=== PATIENT | female | born 1990 | race American Indian/Alaskan Native ===

== ENCOUNTER 2016-12-22 14:27 | Emergency (ER) | payer OTHER ==
[2016-12-22 14:41] VITALS: BMI 33.2
[2016-12-22] MEDS ORDERED: Sodium Chloride 0.9% 1,000 ML IV ONE (15:13)
[2016-12-22] MEDS ORDERED: Sodium Chloride 0.9% 1,000 ML ONE (15:25)
[2016-12-22 15:28] LABS: BASO # 0.1 K/uL (0.0-0.2); BASO % 0.8 % (0.0-2.0); EOS % 0.1 % (0.0-4.0); HEMATOCRIT 41.8 % (34.0-47.0); LYMPH # 2.3 K/uL (1.0-4.3); LYMPH % 34.3 % (20.0-40.0); MEAN CELL VOLUME 86.9 fL (81.0-99.0); MEAN CORPUSCULAR HEMOGLOBIN 28.5 pg (27.0-31.0); MEAN CORPUSCULAR HGB CONC 32.8 g/dL (33.0-37.0); MEAN PLATELET VOLUME 9.8 fL (7.2-11.7); MONO # 0.8 K/uL (0.0-0.8); MONO % 11.5 % (0.0-10.0); RED CELL DISTRIBUTION WIDTH 13.3 % (11.5-14.5); WHITE BLOOD COUNT 6.7 K/uL (4.8-10.8)
--- NOTE | 2016-12-22 15:28 | C.PDOC ---
History Of Present Illness 26 year old female presents to ED with complaints of nausea and vomiting for one week associated with abdominal pain. Patient states she was seen at [facility] few days ago and discharged with Rx. She states pain resolved however she continues to vomit, unable to keep food or water down. She denies any fever, hematemesis, and last BM 3 days ago. Time Seen by Provider: 12/22/16 15:02 Chief Complaint (Nursing): GI Problem History Per: Patient History/Exam Limitations: no limitations Onset/Duration Of Symptoms: Days Current Symptoms Are (Timing): Still Present Location Of Pain/Discomfort: Diffuse Radiation Of Pain To:: None Associated Symptoms: Nausea, Vomiting. denies: Fever, Diarrhea, Urinary Symptoms Last Bowel Movement: Days Ago (3) Recent travel outside of the [place]: No Abnormal Vaginal Bleeding: No Past Medical History Reviewed: Historical Data, Nursing Documentation, Vital Signs Vital Signs: Last Vital Signs Temp 97.6 F 12/22/16 17:40 Pulse 81 12/22/16 17:40 Resp 16 12/22/16 17:40 BP 127/71 12/22/16 17:40 Pulse Ox 97 12/22/16 17:40 - Medical History PMH: Asthma Family History: States: Unknown Family Hx - Social History Hx Alcohol Use: No Hx Substance Use: No - Immunization History Hx Tetanus Toxoid Vaccination: No Hx Influenza Vaccination: No Hx Pneumococcal Vaccination: No Review Of Systems Except As Marked, All Systems Reviewed And Found Negative. Constitutional: Negative for: Fever, Chills Cardiovascular: Negative for: Chest Pain Respiratory: Negative for: Shortness of Breath, Wheezing Gastrointestinal: Positive for: Nausea, Vomiting, Abdominal Pain. Negative for : Diarrhea, Hematemesis Skin: Negative for: Rash Physical Exam - Physical Exam Appears: Non-toxic, No Acute Distress Skin: Normal Color, Dry Head: Atraumatic, Normacephalic Oral Mucosa: Moist Chest: Symmetrical Cardiovascular: Rhythm Regular Respiratory: Normal Breath Sounds, No Rales, No Rhonchi, No Wheezing Gastrointestinal/Abdominal: Soft, No Tenderness, No Distention, No Guarding, No Rebound Back: Normal Inspection Extremity: Normal ROM, Capillary Refill (< 2 sec. ) Neurological/Psych: Oriented x3, Normal Speech, Normal Cognition ED Course And Treatment - Laboratory Results Result Diagrams: 12/22/16 15:25 06/14/17 15:25 O2 Sat by Pulse Oximetry: 99 (RA) Pulse Ox Interpretation: Normal Medical Decision Making Medical Decision Making: Impression: Nausea and Vomiting Plan: * Labs * IV NS, Zofran Prior record reviewed: Patient was seen at [facility] and had US and CT performed showing no cholelithiasis or biliary dilatation. 1.4 cm septated cyst in the lower pole of the left kidney. Progress: Labs reviewed showing hypokalemia. KCL PO ordered. Upon reevaluation patient reports nausea improved. She was able to tolerate PO challenge. She remains afebrile and in no distress. Patient stable for discharge. Will prescribe antiemetic Disposition Counseled Patient/Family Regarding: Diagnosis, Need For Followup, Rx Given - Disposition Referrals: Gonzalez Lemus MD [Staff Provider] - Disposition: HOME/ ROUTINE Disposition Time: 17:40 Condition: STABLE Additional Instructions: Follow up with your primary medical doctor or clinic in 2-5 days for further evaluation. Take medications as prescribed. Return to the emergency department at any time if symptoms persist or worsen. Prescriptions: Ondansetron ODT [Zofran ODT] 1 odt PO BID PRN #6 odt PRN Reason: Nausea/Vomiting Instructions: Acute Nausea and Vomiting (ED) Forms: Work Excuse - POA Present On Arrival: None - Clinical Impression Clinical Impression: Nausea & vomiting - PA / SKIN CARVER / Resident Statement MD/DO has reviewed & agrees with the documentation as recorded. - Scribe Statement The provider has reviewed the documentation as recorded by the Je Alexandra All medical record entries made by the Je were at my direction and personally dictated by me. I have reviewed the chart and agree that the record accurately reflects my personal performance of the history, physical exam, medical decision making, and the department course for this patient. I have also personally directed, reviewed, and agree with the discharge instructions and disposition.
[2016-12-22 15:39] LABS: CHLORIDE 99 mmol/L (98-107); SODIUM 134 mmol/L (132-148)
[2016-12-22 15:42] LABS: ALB/GLOB RATIO 1.2 (1.0-2.1); ALKALINE PHOSPHATASE 56 U/L (38-126); ALT/SGPT 28 U/L (9-52); AST/SGOT 23 U/L (14-36); BILIRUBIN,TOTAL 1.1 mg/dL (0.2-1.3); BLOOD UREA NITROGEN 10 mg/dL (7-17); CARBON DIOXIDE 21 mmol/L (22-30); GFR AFRICAN-AMERICAN > 60; GLUCOSE,RANDOM 84 mg/dL (65-105); TOTAL PROTEIN 7.4 g/dL (6.3-8.3)
[2016-12-22 15:43] LABS: CALCIUM 8.6 mg/dl (8.6-10.4)
[2016-12-22 15:58] LABS: POTASSIUM 2.7 mmol/L (3.6-5.2)
[2016-12-22] MEDS ORDERED: Potassium Chloride 20 mEq ER Tab PO STA (16:07)
[2016-12-22] MEDS ORDERED: Potassium Chloride 20 mEq ER Tab PO ONE (16:53)
[2016-12-22 17:35] LABS: RBC URINE 27 /hpf (0-3); URINE BACTERIA RARE (<OCC); URINE BILIRUBIN NEGATIVE (NEGATIVE); URINE BLOOD 2+ (NEGATIVE); URINE COLOR Amber (YELLOW); URINE GLUCOSE (UA) NORMAL (Normal); URINE KETONE 2+ mg/dL (NEGATIVE); URINE LEUKOCYTE ESTERASE TRACE Leu/uL (Negative); URINE PROTEIN 1+ mg/dL (NEGATIVE); WBC URINE 5 /hpf (0-5)
[2016-12-22 17:42] VITALS: BP 127/71; PULSE 81; RESP 16; TEMP 97.6
[2016-12-24 07:31] VITALS: O2SAT 99
== END 2016-12-22 17:40 | disposition home or self-care (01) ==
LOC: C.ER 14:27
DX: R11.2 Nausea with vomiting, unspecified (principal); E87.6 Hypokalemia
CPT/HCPCS: 80053; 81001; 83690; 84703; 85025; 96374; 96375; 99284; J2405; J7040

== ENCOUNTER 2016-12-23 02:17 | Emergency (ER) | payer OTHER ==
[2016-12-23 02:17] VITALS: BMI 33.2
--- NOTE | 2016-12-23 02:20 | C.PDOC ---
History Of Present Illness Pt presents again with nausea, vomiting, not tolerating po. Pt was seen and evaluated yesterday in this ed and had a neg US and Ct scan at [facility] on 12/14/16. Pt states that she felt better after she left the ed, but at home started with nausea and vomiting again and not tolerating po. Time Seen by Provider: 12/23/16 02:19 Chief Complaint (Nursing): GI Problem History Per: Patient History/Exam Limitations: no limitations Onset/Duration Of Symptoms: Days Current Symptoms Are (Timing): Still Present Context: Other Severity: Moderate Pain Scale Rating Of: 4 Location Of Pain/Discomfort: Epigastric Radiation Of Pain To:: None Quality Of Discomfort: Dull, Cramping Associated Symptoms: Nausea, Vomiting. denies: Fever, Chills, Diarrhea, Constipation Alleviating Factors: None Last Bowel Movement: Today Recent travel outside of the [place]: No Additional History Per: Family Abnormal Vaginal Bleeding: No Past Medical History Reviewed: Historical Data, Nursing Documentation, Vital Signs Vital Signs: Last Vital Signs Temp 97.9 F 12/23/16 02:31 Pulse 70 12/23/16 02:31 Resp 14 12/23/16 02:31 BP 110/69 12/23/16 02:31 Pulse Ox - Medical History PMH: Asthma Family History: States: No Known Family Hx - Social History Hx Alcohol Use: No Hx Substance Use: No - Immunization History Hx Tetanus Toxoid Vaccination: No Hx Influenza Vaccination: No Hx Pneumococcal Vaccination: No Review Of Systems Constitutional: Negative for: Fever, Chills Eyes: Negative for: Vision Change Cardiovascular: Negative for: Chest Pain, Palpitations Respiratory: Negative for: Shortness of Breath Gastrointestinal: Positive for: Nausea, Vomiting, Abdominal Pain Genitourinary: Negative for: Dysuria Musculoskeletal: Negative for: Back Pain Skin: Negative for: Rash, Lesions, Jaundice, Bruising Neurological: Negative for: Weakness Psych: Positive for: Anxiety Physical Exam - Physical Exam Appears: Non-toxic, No Acute Distress Skin: Warm, Dry Eye(s): bilateral: Normal Inspection Oral Mucosa: Dry Neck: Supple Chest: Symmetrical Cardiovascular: Rhythm Regular Respiratory: No Rales, No Rhonchi, No Wheezing Gastrointestinal/Abdominal: Soft, Tenderness (midepigastric), No Distention, No Guarding, No Rebound Back: No CVA Tenderness Extremity: Normal ROM Extremity: Bilateral: Atraumatic Neurological/Psych: Oriented x3, Normal Speech, Normal Cognition Gait: Steady ED Course And Treatment - Laboratory Results Result Diagrams: 12/23/16 03:29 12/23/16 03:29 Disposition Counseled Patient/Family Regarding: Studies Performed, Diagnosis, Need For Followup, Rx Given - Disposition Referrals: Gonzalez Lemus MD [Staff Provider] - Disposition: HOME/ ROUTINE Disposition Time: 02:20 Condition: FAIR Instructions: Abdominal Pain (ED), Acute Nausea and Vomiting (ED) - Clinical Impression Clinical Impression: Nausea & vomiting
[2016-12-23] MEDS ORDERED: Sodium Chloride 0.9% 1,000 ML IV ONE (02:40)
[2016-12-23 03:37] LABS: BASO # 0.1 K/uL (0.0-0.2); BASO % 1.4 % (0.0-2.0); EOS # 0.1 K/uL (0.0-0.7); HEMATOCRIT 41.5 % (34.0-47.0); LYMPH # 2.1 K/uL (1.0-4.3); LYMPH % 32.2 % (20.0-40.0); MEAN CORPUSCULAR HGB CONC 33.3 g/dL (33.0-37.0); MEAN PLATELET VOLUME 10.1 fL (7.2-11.7); MONO # 0.7 K/uL (0.0-0.8); MONO % 9.9 % (0.0-10.0); RED CELL DISTRIBUTION WIDTH 13.5 % (11.5-14.5); WHITE BLOOD COUNT 6.6 K/uL (4.8-10.8)
[2016-12-23 03:38] LABS: CHLORIDE 101 mmol/L (98-107); POTASSIUM 3.6 mmol/L (3.6-5.2); SODIUM 135 mmol/L (132-148)
[2016-12-23 03:40] LABS: ALB/GLOB RATIO 1.2 (1.0-2.1); ALKALINE PHOSPHATASE 51 U/L (38-126); AST/SGOT 21 U/L (14-36); CARBON DIOXIDE 23 mmol/L (22-30); GFR AFRICAN-AMERICAN > 60; RBC URINE 22 /hpf (0-3); TOTAL PROTEIN 7.1 g/dL (6.3-8.3); URINE BACTERIA FEW (<OCC); URINE BILIRUBIN NEGATIVE (NEGATIVE); URINE BLOOD 2+ (NEGATIVE); URINE COLOR Amber (YELLOW); URINE GLUCOSE (UA) NORMAL (Normal); URINE KETONE 2+ mg/dL (NEGATIVE); URINE LEUKOCYTE ESTERASE TRACE Leu/uL (Negative); URINE PROTEIN 1+ mg/dL (NEGATIVE); WBC URINE 6 /hpf (0-5)
[2016-12-23 03:41] LABS: ALT/SGPT 24 U/L (9-52); BLOOD UREA NITROGEN 10 mg/dL (7-17); CALCIUM 8.7 mg/dl (8.6-10.4); GLUCOSE,RANDOM 87 mg/dL (65-105)
[2016-12-23 05:03] VITALS: BP 116/73; PULSE 53; RESP 16; TEMP 98.1; O2SAT 100
== END 2016-12-23 05:05 | disposition home or self-care (01) ==
LOC: C.ER 02:17
DX: R11.2 Nausea with vomiting, unspecified (principal)
CPT/HCPCS: 80053; 81001; 83690; 84703; 85025; 96374; 96375; 99284; J2405; J7040

== ENCOUNTER 2017-01-20 10:06 | Emergency (ER) | payer OTHER ==
[2017-01-20 10:09] VITALS: BMI 32.2
[2017-01-20 10:14] VITALS: RESP 20
[2017-01-20] MEDS ORDERED: Sodium Chloride 0.9% 1,000 ML IV ONE (10:29)
[2017-01-20] MEDS ORDERED: Sodium Chloride 0.9% 1,000 ML ONE (10:39)
--- NOTE | 2017-01-20 10:57 | C.PDOC ---
History Of Present Illness 26 yr old female presents to the ER with complaints of epigastric pain, nausea and vomiting for 1 day. Patient states "my gastritis is acting up". Admits to being on her period. Denies fever, chest pain, SOB, diarrhea, dysuria or back pain. Time Seen by Provider: 01/20/17 10:25 Chief Complaint (Nursing): Abdominal Pain History Per: Patient History/Exam Limitations: no limitations Onset/Duration Of Symptoms: Days (1) Current Symptoms Are (Timing): Still Present Past Medical History Reviewed: Historical Data, Nursing Documentation, Vital Signs Vital Signs: Last Vital Signs Temp 98.9 F 01/20/17 14:29 Pulse 77 01/20/17 14:29 Resp 20 01/20/17 14:29 BP 139/88 01/20/17 14:29 Pulse Ox 97 01/20/17 15:57 - Medical History PMH: Asthma, Gastritis Family History: States: No Known Family Hx - Social History Hx Alcohol Use: No Hx Substance Use: No - Immunization History Hx Tetanus Toxoid Vaccination: No Hx Influenza Vaccination: No Hx Pneumococcal Vaccination: No Review Of Systems Except As Marked, All Systems Reviewed And Found Negative. Constitutional: Negative for: Fever Cardiovascular: Negative for: Chest Pain Respiratory: Negative for: Shortness of Breath Gastrointestinal: Positive for: Nausea, Vomiting, Abdominal Pain (Epigastric ). Negative for: Diarrhea Genitourinary: Negative for: Dysuria Musculoskeletal: Negative for: Back Pain Physical Exam - Physical Exam Appears: Non-toxic, No Acute Distress Skin: Normal Color, Warm, Dry, No Rash Head: Atraumatic, Normacephalic Oral Mucosa: Moist Chest: Symmetrical, No Tenderness Cardiovascular: Rhythm Regular, No Murmur Respiratory: Normal Breath Sounds, No Rales, No Rhonchi, No Stridor, No Wheezing Gastrointestinal/Abdominal: Soft, Tenderness (Epigastric and superpubic tenderness ), No Guarding, No Rebound Back: Normal Inspection, No CVA Tenderness Extremity: Normal ROM, No Swelling Neurological/Psych: Oriented x3, Normal Speech, Normal Motor ED Course And Treatment - Laboratory Results Result Diagrams: 01/20/17 10:52 01/20/17 10:52 O2 Sat by Pulse Oximetry: 97 (RA ) Pulse Ox Interpretation: Normal - CT Scan/US CT - Abd & Pelvis Other Rad Studies (CT/US): Read By Radiologist, Radiology Report Reviewed CT/US Interpretation: PROCEDURE: CT Abdomen and Pelvis with contrast. HISTORY : lower abd pain. COMPARISON: None. TECHNIQUE: Helical CT of the abdomen pelvis was performed following intravenous contrast administration only. Oral contrast was not administered as per referring physician request. Contrast dose : Visipaque 320- 100 cc. Radiation dose: Total exam DLP = 915 mGy-cm. This CT exam was performed using one or more of the following dose reduction techniques: Automated exposure control, adjustment of the mA and/or kV according to patient size, and/or use of iterative reconstruction technique. FINDINGS: LOWER THORAX: There is a small noncalcified subpleural nodule related to the lateral portion of the right major fissure and image 2 series 3 measuring 3.3 mm. Lung bases are otherwise unremarkable bilaterally. Small hiatal hernia is also encounter. LIVER: Unremarkable. No gross lesion or ductal dilatation. GALLBLADDER AND BILE DUCTS: The gallbladder is distended but otherwise appears unremarkable. No extrahepatic biliary dilatation is identified. . PANCREAS: Unremarkable. No gross lesion or ductal dilatation. SPLEEN: Unremarkable. ADRENALS: Unremarkable. No mass. KIDNEYS AND URETERS: There is a small lucency of the upper pole right kidney likely representing an 8 mm cyst but is too small to characterize. 1.6 cm lucency in the midpole left kidney measuring approximately 30 Hounsfield units may represent a complex cyst or a poorly enhancing solid nodule. Several follow-up CT without contrast or MRI. No hydronephrosis. No obstructive uropathy or perinephric fluid collection bilaterally. VASCULATURE: Unremarkable. No aortic aneurysm. BOWEL : Moderate fecal loading is seen throughout the large bowel limiting its interpretation as well as the lack of oral contrast, however, there is question of parity anterior reaction within the inferior bowel mesentery at the lower abdomen and upper pelvis. Peristalsis of bowel obscures small bowel evaluation somewhat. Consider possible segmental enteritis of the mid to distal small bowel. Limited pelvic fluid is appreciated at the mid to inferior pelvis. No free air or abscess identified at this time. There is no CT evidence of bowel obstruction at this time. The stomach is collapsed. APPENDIX: Not identified. Further clinical correlation is advised. No CT evidence to suggest appendicitis this time error. . PERITONEUM: Included in bowel section above. LYMPH NODES: Unremarkable. No enlarged lymph nodes. BLADDER: Unremarkable. REPRODUCTIVE : Unremarkable. BONES: No acute fracture. OTHER FINDINGS: 1.1 cm nodular density at the deep posterior left breast incidentally Hounsfield units. This may represent a complex cyst although a solid nodule is not completely excluded and follow-up ultrasound is advised for further characterization. IMPRESSION: 1. Inferior abdomen/upper pelvic bowel mesenteric reaction appears mild and is associated with mid to distal small bowel loops. Bowel peristalsis obscures this region however the findings suspicious for segmental enteritis. Consider possible infectious or inflammatory causes though ischemia and even neoplasm not completely excluded. Limited ascites is seen in the inferior pelvis. 2. No definite additional acute abdominal or pelvic findings. The appendix is not identified and further clinical correlation is advised. There is no CT pattern to suggest appendicitis at this time however. 3. Small left renal cysts is appreciated which is of intermediate density. CT or MRI with without contrast for follow-up. 4. Incidental 3.3 mm nodule abuts the major fissure laterally. Follow-up CT is advised in 12 months to demonstrate stability of this finding. 5. 1.1 cm rounded density is seen at the posterior left breast possibly representing a complex cyst though solid nodule not excluded. Follow-up ultrasound is advised. Against Medical Advice - AMA Patient Left Against Medical Advice: The patient declines admission to the hospital and wishes to leave the Emergency Department. This action is against my medical advice. This decision was made with informed refusal. The patient was told that admission to the hospital is necessary. Explanation of the reasons why were discussed. The risks of leaving were explained to the patient and include, but are not limited to, worsening of known or currently unknown conditions, permanent disability and from undiagnosed or untreated conditions. The patient has the capacity to make this informed decision and understands my explanation of the current medical problem and risks of leaving. The patient voluntarily accepts these risks and signed an AMA form documenting our conversation. The patient was given the opportunity to ask questions and reconsider. The patient was encouraged to return to the Emergency Department at any time for further care. Medical Decision Making Medical Decision Making: abd pain consider colitis, gastritis, pancreatitis PLAN: * CT - Abd & Pelvis * CBC * CMP * HCG * Urinalysis * Protonix IVP * Zofran IVP * Sodium Chloride IV 200: pt had persistent pain, and developed lower abdominal ttp. ct added. ct shows enteritis, cannot exclude ischemia. requested pt to be observed in hospital for specilaist eval. pt refuses. states she wishes to go home. will treat with antibiotics, and advise outpt f/u. Disposition - Disposition Referrals: Zain Cristobal MD [Staff Provider] - [facility] [Outside] [facility] [Outside] Disposition: HOME/ ROUTINE Disposition Time: 14:09 Condition: STABLE Additional Instructions: please follow up with your doctor/clinic return to er with worsening symptoms or concerns. Prescriptions: Ciprofloxacin [Cipro] 500 mg PO BID #14 tab metroNIDAZOLE [Flagyl] 500 mg PO TID #21 tab Ondansetron ODT [Zofran ODT] 4 mg PO Q6 PRN #20 odt PRN Reason: Nausea/Vomiting Instructions: Acute Abdominal Pain (ED), Enteritis (ED) - Clinical Impression Clinical Impression: Abdominal pain, Enteritis - Scribe Statement The provider has reviewed the documentation as recorded by the Sofiaibhenrry Gama Provider Attestation: All medical record entries made by the Sofiaibhenrry were at my direction and personally dictated by me. I have reviewed the chart and agree that the record accurately reflects my personal performance of the history, physical exam, medical decision making, and the department course for this patient. I have also personally directed, reviewed, and agree with the discharge instructions and disposition.
[2017-01-20 11:12] LABS: HCG,QUALITATIVE URINE NEGATIVE (NEGATIVE)
[2017-01-20 11:13] LABS: BASO % 0.6 % (0.0-2.0); EOS # 0.1 K/uL (0.0-0.7); HEMOGLOBIN 12.9 g/dL (11.0-16.0); LYMPH # 1.3 K/uL (1.0-4.3); LYMPH % 20.6 % (20.0-40.0); MEAN CELL VOLUME 89.8 fL (81.0-99.0); MEAN CORPUSCULAR HEMOGLOBIN 29.3 pg (27.0-31.0); MEAN CORPUSCULAR HGB CONC 32.7 g/dL (33.0-37.0); MEAN PLATELET VOLUME 9.7 fL (7.2-11.7); MONO # 0.6 K/uL (0.0-0.8); MONO % 9.2 % (0.0-10.0); NEUT # 4.4 K/uL (1.8-7.0); NEUT % 68.6 % (50.0-75.0); NRBC % 0.1 % (0.0-2.0); RBC 4.38 Mil/uL (3.80-5.20); RED CELL DISTRIBUTION WIDTH 13.6 % (11.5-14.5); WHITE BLOOD COUNT 6.4 K/uL (4.8-10.8)
[2017-01-20 11:17] LABS: SQUAMOUS EPITHIAL 5 /hpf (0-5); URINE BILIRUBIN NEGATIVE (NEGATIVE); URINE BLOOD NEGATIVE (NEGATIVE); URINE CLARITY Clear (Clear); URINE COLOR Yellow (YELLOW); URINE GLUCOSE (UA) NORMAL (Normal); URINE LEUKOCYTE ESTERASE NEG Leu/uL (Negative); URINE NITRATE NEGATIVE (NEGATIVE); URINE PROTEIN 1+ mg/dL (NEGATIVE)
[2017-01-20 11:18] LABS: ALB/GLOB RATIO 1.2 (1.0-2.1); ALT/SGPT 24 U/L (9-52); AST/SGOT 24 U/L (14-36); BLOOD UREA NITROGEN 6 mg/dL (7-17); GFR AFRICAN-AMERICAN > 60; GFR NON-AFRICAN AMERICAN > 60
[2017-01-20 11:19] LABS: CALCIUM 8.9 mg/dl (8.6-10.4); LIPASE 40 U/L (23-300)
[2017-01-20] MEDS ORDERED: Iodixanol 320 MG/ML 100 ML BOTTLE IV ONE (12:03)
--- NOTE | 2017-01-20 14:00 | CT ---
PROCEDURE: CT Abdomen and Pelvis with contrast HISTORY: lower abd pain COMPARISON: None. TECHNIQUE: Helical CT of the abdomen pelvis was performed following intravenous contrast administration only. Oral contrast was not administered as per referring physician request. Contrast dose: Visipaque 320- 100 cc Radiation dose: Total exam DLP = 915 mGy-cm. This CT exam was performed using one or more of the following dose reduction techniques: Automated exposure control, adjustment of the mA and/or kV according to patient size, and/or use of iterative reconstruction technique. FINDINGS: LOWER THORAX: There is a small noncalcified subpleural nodule related to the lateral portion of the right major fissure and image 2 series 3 measuring 3.3 mm. Lung bases are otherwise unremarkable bilaterally. Small hiatal hernia is also encounter. LIVER: Unremarkable. No gross lesion or ductal dilatation. GALLBLADDER AND BILE DUCTS: The gallbladder is distended but otherwise appears unremarkable. No extrahepatic biliary dilatation is identified. . PANCREAS: Unremarkable. No gross lesion or ductal dilatation. SPLEEN: Unremarkable. ADRENALS: Unremarkable. No mass. KIDNEYS AND URETERS: There is a small lucency of the upper pole right kidney likely representing an 8 mm cyst but is too small to characterize. 1.6 cm lucency in the midpole left kidney measuring approximately 30 Hounsfield units may represent a complex cyst or a poorly enhancing solid nodule. Several follow-up CT without contrast or MRI. No hydronephrosis. No obstructive uropathy or perinephric fluid collection bilaterally VASCULATURE: Unremarkable. No aortic aneurysm. BOWEL: Moderate fecal loading is seen throughout the large bowel limiting its interpretation as well as the lack of oral contrast, however, there is question of parity anterior reaction within the inferior bowel mesentery at the lower abdomen and upper pelvis. Peristalsis of bowel obscures small bowel evaluation somewhat. Consider possible segmental enteritis of the mid to distal small bowel. Limited pelvic fluid is appreciated at the mid to inferior pelvis. No free air or abscess identified at this time. There is no CT evidence of bowel obstruction at this time. The stomach is collapsed. APPENDIX: Not identified. Further clinical correlation is advised. No CT evidence to suggest appendicitis this time error. . PERITONEUM: Included in bowel section above. LYMPH NODES: Unremarkable. No enlarged lymph nodes. BLADDER: Unremarkable. REPRODUCTIVE: Unremarkable. BONES: No acute fracture. OTHER FINDINGS: 1.1 cm nodular density at the deep posterior left breast incidentally Hounsfield units. This may represent a complex cyst although a solid nodule is not completely excluded and follow-up ultrasound is advised for further characterization. IMPRESSION: 1. Inferior abdomen/upper pelvic bowel mesenteric reaction appears mild and is associated with mid to distal small bowel loops. Bowel peristalsis obscures this region however the findings suspicious for segmental enteritis. Consider possible infectious or inflammatory causes though ischemia and even neoplasm not completely excluded. Limited ascites is seen in the inferior pelvis. 2. No definite additional acute abdominal or pelvic findings. The appendix is not identified and further clinical correlation is advised. There is no CT pattern to suggest appendicitis at this time however. 3. Small left renal cysts is appreciated which is of intermediate density CT or MRI with without contrast for follow-up. 4. Incidental 3.3 mm nodule abuts the major fissure laterally. Follow-up CT is advised in 12 months to demonstrate stability of this finding. 5. 1.1 cm rounded density is seen at the posterior left breast possibly representing a complex cyst though solid nodule not excluded. Follow-up ultrasound is advised. .
[2017-01-20 14:30] VITALS: BP 139/88; PULSE 77; TEMP 98.9
[2017-01-20 15:57] VITALS: O2SAT 97
== END 2017-01-20 14:30 | disposition home or self-care (01) ==
LOC: C.ER 10:06
DX: K52.9 Noninfective gastroenteritis and colitis, unspecified (principal)
CPT/HCPCS: 74177; 80053; 81001; 83690; 84703; 85025; 96361; 96374; 96375; 99285; C9113; J1885; J2405; J2765; J7040; Q9967

== ENCOUNTER 2017-01-22 06:25 | Emergency (ER) | payer OTHER ==
[2017-01-22 06:25] VITALS: BMI 32.2
[2017-01-22] MEDS ORDERED: Aluminum Hydroxide/Magnesium Hydroxide Susp (30 mL) PO STA (07:20)
[2017-01-22] MEDS ORDERED: Sodium Chloride 0.9% 1,000 ML IV ONE (07:20)
[2017-01-22] MEDS ORDERED: Sodium Chloride 0.9% 1,000 ML ONE (08:09)
[2017-01-22] MEDS ORDERED: Aluminum Hydroxide/Magnesium Hydroxide Susp (30 mL) ONE (08:09)
[2017-01-22 08:12] LABS: BASO # 0.1 K/uL (0.0-0.2); BASO % 0.6 % (0.0-2.0); HEMOGLOBIN 14.7 g/dL (11.0-16.0); LYMPH # 1.3 K/uL (1.0-4.3); LYMPH % 14.1 % (20.0-40.0); MEAN CELL VOLUME 88.6 fL (81.0-99.0); MEAN CORPUSCULAR HEMOGLOBIN 29.3 pg (27.0-31.0); MEAN CORPUSCULAR HGB CONC 33.1 g/dL (33.0-37.0); MEAN PLATELET VOLUME 9.7 fL (7.2-11.7); MONO # 0.8 K/uL (0.0-0.8); MONO % 8.5 % (0.0-10.0); NEUT # 7.3 K/uL (1.8-7.0); NEUT % 76.8 % (50.0-75.0); NRBC % 0.1 % (0.0-2.0); RBC 5.01 Mil/uL (3.80-5.20); RED CELL DISTRIBUTION WIDTH 13.9 % (11.5-14.5); WHITE BLOOD COUNT 9.5 K/uL (4.8-10.8)
[2017-01-22 08:20] LABS: HCG,QUALITATIVE URINE NEGATIVE (NEGATIVE)
[2017-01-22 08:23] LABS: ALBUMIN 4.9 g/dL (3.5-5.0)
[2017-01-22 08:26] LABS: ALB/GLOB RATIO 1.1 (1.0-2.1); AST/SGOT 21 U/L (14-36); BLOOD UREA NITROGEN 11 mg/dL (7-17); GFR AFRICAN-AMERICAN > 60; GFR NON-AFRICAN AMERICAN > 60; SQUAMOUS EPITHIAL 2 /hpf (0-5); URINE BACTERIA RARE (<OCC); URINE BILIRUBIN 1+ (NEGATIVE); URINE BLOOD 1+ (NEGATIVE); URINE CLARITY Clear (Clear); URINE GLUCOSE (UA) NORMAL (Normal); URINE LEUKOCYTE ESTERASE TRACE Leu/uL (Negative); URINE NITRATE NEGATIVE (NEGATIVE); URINE PROTEIN 3+ mg/dL (NEGATIVE)
[2017-01-22 08:27] LABS: ALT/SGPT 21 U/L (9-52); CALCIUM 10.5 mg/dl (8.6-10.4); LIPASE 58 U/L (23-300)
--- NOTE | 2017-01-22 08:29 | C.PDOC ---
History Of Present Illness 26-year-old female, PMHx includes Gastritis, presents to the emergency department with complaints of GI distress. Patient states she has had multiple episodes of nausea and non-bloody/non-bilious vomiting that started yesterday. Denies fevers, abdominal pain, chills, chest pain, shortness of breath, or any other associated symptoms. No other complaints at this time. Time Seen by Provider: 01/22/17 07:16 Chief Complaint (Nursing): Abdominal Pain History Per: Patient History/Exam Limitations: no limitations Onset/Duration Of Symptoms: Days Current Symptoms Are (Timing): Still Present Severity: Moderate Past Medical History Reviewed: Historical Data, Nursing Documentation, Vital Signs Vital Signs: Last Vital Signs Temp 98.2 F 01/22/17 06:44 Pulse 50 L 01/22/17 06:44 Resp 16 01/22/17 06:44 BP 129/84 01/22/17 06:44 Pulse Ox 100 01/22/17 08:33 - Medical History PMH: Asthma, Gastritis Family History: States: No Known Family Hx - Social History Hx Alcohol Use: No Hx Substance Use: No - Immunization History Hx Tetanus Toxoid Vaccination: No Hx Influenza Vaccination: No Hx Pneumococcal Vaccination: No Review Of Systems Except As Marked, All Systems Reviewed And Found Negative. Constitutional: Negative for: Fever, Chills Cardiovascular: Negative for: Chest Pain Respiratory: Negative for: Cough Gastrointestinal: Positive for: Nausea, Vomiting. Negative for: Abdominal Pain , Diarrhea, Constipation Musculoskeletal: Negative for: Back Pain Physical Exam - Physical Exam Appears: Non-toxic, No Acute Distress Skin: Warm, Dry, No Rash Head: Atraumatic, Normacephalic Eye(s): bilateral: Normal Inspection, PERRL Nose: Normal Oral Mucosa: Moist Lips: Normal Appearing Neck: Normal ROM Cardiovascular: Rhythm Regular, No Murmur Respiratory: Normal Breath Sounds, No Accessory Muscle Use Gastrointestinal/Abdominal: Soft, No Tenderness Extremity: Normal ROM Neurological/Psych: Oriented x3, Normal Speech ED Course And Treatment - Laboratory Results Result Diagrams: 01/22/17 08:05 01/22/17 08:05 O2 Sat by Pulse Oximetry: 100 (on RA) Pulse Ox Interpretation: Normal Medical Decision Making Medical Decision Making: Patient feeling better. States she gets gastritis whenever she has her menses. Disposition Counseled Patient/Family Regarding: Studies Performed, Diagnosis, Need For Followup, Rx Given - Disposition Referrals: [facility] [Outside] Disposition: HOME/ ROUTINE Disposition Time: 10:07 Condition: STABLE Prescriptions: Famotidine [Pepcid] 1 tab PO BID #30 tab Instructions: Gastritis (ED) Forms: General Discharge Instructions, Work Excuse - POA Present On Arrival: None - Clinical Impression Clinical Impression: Nausea & vomiting, Gastritis - PA / PHARMACY INTAKE TECHNICIAN / Resident Statement MD/DO has reviewed & agrees with the documentation as recorded. - Scribe Statement The provider has reviewed the documentation as recorded by the Scribe (Hoa Estrada) All medical record entries made by the Scribe were at my direction and personally dictated by me. I have reviewed the chart and agree that the record accurately reflects my personal performance of the history, physical exam, medical decision making, and the department course for this patient. I have also personally directed, reviewed, and agree with the discharge instructions and disposition.
[2017-01-22 08:32] LABS: URINE COLOR YELLOW (YELLOW)
[2017-01-22 12:38] VITALS: BP 145/90; PULSE 63; RESP 15; TEMP 98.9; O2SAT 100
== END 2017-01-22 10:25 | disposition home or self-care (01) ==
LOC: C.ER 06:25
DX: K29.70 Gastritis, unspecified, without bleeding (principal)
CPT/HCPCS: 80053; 81001; 83690; 84703; 85025; 96361; 96374; 96375; 99284; J2405; J7040

== ENCOUNTER 2017-01-23 05:55 | Emergency (ER) | payer OTHER ==
[2017-01-23 05:56] VITALS: BMI 32.2
[2017-01-23 06:11] VITALS: RESP 16
[2017-01-23] MEDS ORDERED: Belladonna-Phenobarbital PO STA (07:16)
[2017-01-23] MEDS ORDERED: Lidocaine 2% Viscous 100 ml PO STA (07:16)
[2017-01-23] MEDS ORDERED: Aluminum Hydroxide/Magnesium Hydroxide Susp (30 mL) PO STA (07:16)
[2017-01-23] MEDS ORDERED: Sodium Chloride 0.9% 1,000 ML IV ONE (07:16)
[2017-01-23] MEDS ORDERED: Dextrose 5%/0.45% NS 1,000 ML IV ONE ×2 (07:21→07:29)
[2017-01-23] MEDS ORDERED: Aluminum Hydroxide/Magnesium Hydroxide Susp (30 mL) ONE (07:29)
[2017-01-23] MEDS ORDERED: Sodium Chloride 0.9% 1,000 ML ONE (07:29)
[2017-01-23] MEDS ORDERED: Belladonna-Phenobarbital ONE (07:29)
[2017-01-23 07:33] LABS: BASO % 0.4 % (0.0-2.0); EOS % 0.1 % (0.0-4.0); HEMOGLOBIN 13.8 g/dL (11.0-16.0); LYMPH # 1.5 K/uL (1.0-4.3); MEAN CELL VOLUME 88.7 fL (81.0-99.0); MEAN CORPUSCULAR HEMOGLOBIN 29.6 pg (27.0-31.0); MEAN CORPUSCULAR HGB CONC 33.4 g/dL (33.0-37.0); MEAN PLATELET VOLUME 10.5 fL (7.2-11.7); MONO # 0.6 K/uL (0.0-0.8); MONO % 9.4 % (0.0-10.0); NEUT % 65.1 % (50.0-75.0); NRBC % 0.1 % (0.0-2.0); RBC 4.68 Mil/uL (3.80-5.20); RED CELL DISTRIBUTION WIDTH 13.6 % (11.5-14.5); WHITE BLOOD COUNT 6.2 K/uL (4.8-10.8)
--- NOTE | 2017-01-23 08:18 | C.PDOC ---
History Of Present Illness Patient is a 26 y/o female, whose PMHx includes gastritis, presents to the ED for evaluation of multiple episodes of vomiting since last night. Patient was seen here yesterday with similar episode of nausea and non-bloody/non-bilious vomiting, and was treated with Zofran, Pepcid, and IV fluids. Pt reported feeling better yesterday after the treatment, and was discharged home with prescription of Zofran. Patient states that she was unable to fill her prescriptions due to insurance reasons. Pt states her symptoms still persist, which prompted her to visit ED again today. Patient notes that she gets gastritis whenever she has her menses. Otherwise, denies any abdominal pain, back pain, fever, chills, or urinary symptoms. Time Seen by Provider: 01/23/17 07:15 Chief Complaint (Nursing): Abdominal Pain History Per: Patient History/Exam Limitations: no limitations Onset/Duration Of Symptoms: Days Current Symptoms Are (Timing): Still Present Radiation Of Pain To:: None Associated Symptoms: Nausea, Vomiting. denies: Fever, Chills, Diarrhea, Loss Of Appetite, Back Pain, Chest Pain, Constipation, Urinary Symptoms Exacerbating Factors: None Alleviating Factors: None Recent travel outside of the [place]: No Additional History Per: Patient Abnormal Vaginal Bleeding: No Past Medical History Reviewed: Historical Data, Nursing Documentation, Vital Signs Vital Signs: Last Vital Signs Temp 98.0 F 01/23/17 06:08 Pulse 52 L 01/23/17 06:08 Resp 16 01/23/17 06:08 BP 129/78 01/23/17 06:08 Pulse Ox 98 01/23/17 08:41 - Medical History PMH: Asthma, Gastritis Denies: Chronic Kidney Disease Family History: States: Unknown Family Hx - Social History Hx Alcohol Use: No Hx Substance Use: No - Immunization History Hx Tetanus Toxoid Vaccination: No Hx Influenza Vaccination: No Hx Pneumococcal Vaccination: No Review Of Systems Except As Marked, All Systems Reviewed And Found Negative. Constitutional: Negative for: Fever, Chills Cardiovascular: Negative for: Chest Pain, Palpitations Gastrointestinal: Positive for: Nausea, Vomiting. Negative for: Abdominal Pain , Diarrhea, Constipation, Hematemesis Genitourinary: Negative for: Dysuria, Frequency, Incontinence, Hematuria Musculoskeletal: Negative for: Back Pain Skin: Negative for: Rash Physical Exam - Physical Exam Appears: Non-toxic, No Acute Distress Skin: Normal Color, Warm, Dry Head: Atraumatic, Normacephalic Eye(s): bilateral: Normal Inspection Neck: Normal ROM, Supple Chest: Symmetrical Cardiovascular: Rhythm Regular, No Murmur Respiratory: Normal Breath Sounds, No Rales, No Rhonchi, No Wheezing Gastrointestinal/Abdominal: Soft, No Tenderness, No Guarding, No Rebound Extremity: Bilateral: Atraumatic, Normal ROM Neurological/Psych: Oriented x3, Normal Speech, Normal Cognition ED Course And Treatment - Laboratory Results Result Diagrams: 01/23/17 07:31 O2 Sat by Pulse Oximetry: 98 (on RA) Pulse Ox Interpretation: Normal Progress Note: Blood work was done yesterday, which showed low potassium levels. Pt states her potassium level is usually low. Blood work will be repeated today. Patient will be treated with Zofran, Pepcid, Maalox, , and IV fluids. Medical Decision Making Medical Decision Making: patient feeling better, tolerating PO. will d/c with Rx for compazine and reglan. Disposition Counseled Patient/Family Regarding: Diagnosis, Need For Followup, Rx Given - Disposition Disposition: HOME/ ROUTINE Disposition Time: 09:38 Condition: STABLE Prescriptions: Metoclopramide HCl [Reglan] 10 mg PO BID #6 tablet Prochlorperazine [Compazine Rectal Supp] 25 mg RC BID #6 sup Instructions: Gastritis (ED) Forms: General Discharge Instructions, Work Excuse - POA Present On Arrival: None - Clinical Impression Clinical Impression: Gastritis - Scribe Statement The provider has reviewed the documentation as recorded by the Je Perdue All medical record entries made by the Sofiaibhenrry were at my direction and personally dictated by me. I have reviewed the chart and agree that the record accurately reflects my personal performance of the history, physical exam, medical decision making, and the department course for this patient. I have also personally directed, reviewed, and agree with the discharge instructions and disposition.
[2017-01-23] MEDS ORDERED: Potassium Chloride 20 mEq/15 ml LIQ UD PO STA (08:57)
[2017-01-23] MEDS ORDERED: Potassium Chloride 20 mEq/15 ml LIQ UD ONE (09:07)
[2017-01-23 09:57] VITALS: BP 136/88; PULSE 62; TEMP 97.8; O2SAT 100
== END 2017-01-23 10:15 | disposition home or self-care (01) ==
LOC: C.ER 05:55
DX: K29.70 Gastritis, unspecified, without bleeding (principal)
CPT/HCPCS: 85025; 96361; 96374; 96375; 99285; J2405; J7040; J7042

== ENCOUNTER 2017-01-25 03:57 | Emergency (ER) | payer OTHER ==
[2017-01-25 03:57] VITALS: BMI 32.2
[2017-01-25] MEDS ORDERED: Sodium Chloride 0.9% 1,000 ML IV ONE ×2 (04:15)
--- NOTE | 2017-01-25 04:30 | C.PDOC ---
History Of Present Illness 26 year old female who presents to the ER with a complaint of abdominal pain. Patient has been seen 3 times in the last 3 days for vomiting and abdominal pain. Patient report having severe diarrhea earlier today that she describes as watery; no blood. Patient went to see her PMD who scheduled her for an endoscopy but came to the ER because she felt increased weakness. Denies fever, chills, or urinary symptoms. Chief Complaint (Nursing): Abdominal Pain History Per: Patient History/Exam Limitations: no limitations Onset/Duration Of Symptoms: Days Current Symptoms Are (Timing): Still Present Location Of Pain/Discomfort: Epigastric Radiation Of Pain To:: None Quality Of Discomfort: Unable To Describe Associated Symptoms: Vomiting, Diarrhea. denies: Fever, Chills, Urinary Symptoms Exacerbating Factors: None Alleviating Factors: None Recent travel outside of the [place]: No Abnormal Vaginal Bleeding: No Past Medical History Reviewed: Historical Data, Nursing Documentation, Vital Signs Vital Signs: Last Vital Signs Temp 98.9 F 01/25/17 04:40 Pulse 54 L 01/25/17 04:40 Resp 14 01/25/17 04:40 BP 119/73 01/25/17 04:40 Pulse Ox 99 01/25/17 04:40 - Medical History PMH: Asthma, Gastritis Surgical History: No Surg Hx Family History: States: Unknown Family Hx - Social History Hx Alcohol Use: No Hx Substance Use: No - Immunization History Hx Tetanus Toxoid Vaccination: No Hx Influenza Vaccination: No Hx Pneumococcal Vaccination: No Review Of Systems Constitutional: Positive for: Weakness. Negative for: Fever, Chills Gastrointestinal: Positive for: Vomiting, Abdominal Pain, Diarrhea Genitourinary: Negative for: Dysuria, Incontinence, Hematuria Physical Exam - Physical Exam Appears: Non-toxic, No Acute Distress Skin: Normal Color, Warm, Dry Head: Atraumatic, Normacephalic Oral Mucosa: Moist Chest: Symmetrical, No Tenderness Cardiovascular: Rhythm Regular, No Murmur Respiratory: Normal Breath Sounds, No Rales, No Rhonchi, No Wheezing Gastrointestinal/Abdominal: Bowel Sounds (Hyperactive), Soft, Tenderness (Mild epigastric), No Guarding, No Rebound Neurological/Psych: Oriented x3, Normal Speech, Normal Cognition ED Course And Treatment - Laboratory Results Result Diagrams: 01/25/17 04:41 01/25/17 04:41 ECG: Interpreted By Me, Viewed By Me ECG Rhythm: Sinus Bradycardia, Nonspecific Changes ECG Interpretation: No Acute Changes, Abnormal Interpretation Of ECG: sINUS BRADYCARDIA, NONSPC. T FLATTENING LATERAL LEADS. ABNORMAL TRACINGS. Progress Note: Blood work and urinalysis ordered. Bentyl, pepcid, zofran, potassium, and IV fluids administered. Disposition Counseled Patient/Family Regarding: Diagnosis - Disposition Referrals: [facility] [Outside] Disposition: HOME/ ROUTINE Disposition Time: 07:00 Condition: STABLE Additional Instructions: TO KEEP APPT. FOR ENDOSCOPY TODAY WITH PRIVATE DOCTOR. Prescriptions: Phenobarb/Hyoscy/Atropine/Scop [ Tablet] 16.2 mg PO Q6 #14 tablet Potassium Chloride 10 meq PO BID #20 [email or web address] Instructions: Gastritis (GEN), Hypokalemia (DC), Acute Diarrhea (ED) - POA Present On Arrival: None - Clinical Impression Clinical Impression: Gastritis, Diarrhea, Vomiting, Hypokalemia - Scribe Statement The provider has reviewed the documentation as recorded by the Sofiaibhenrry Hallman All medical record entries made by the Sofiaibhenrry were at my direction and personally dictated by me. I have reviewed the chart and agree that the record accurately reflects my personal performance of the history, physical exam, medical decision making, and the department course for this patient. I have also personally directed, reviewed, and agree with the discharge instructions and disposition.
--- NOTE | 2017-01-25 04:34 | C.PDOC ---
Chief Complaint (Nursing): Abdominal Pain Past Medical History - Medical History PMH: Asthma, Gastritis Denies: Chronic Kidney Disease Family History: States: Unknown Family Hx - Social History Hx Alcohol Use: No Hx Substance Use: No - Immunization History Hx Tetanus Toxoid Vaccination: No Hx Influenza Vaccination: No Hx Pneumococcal Vaccination: No
[2017-01-25 04:40] VITALS: O2SAT 99
[2017-01-25 04:45] LABS: BASO % 0.6 % (0.0-2.0); EOS % 0.1 % (0.0-4.0); HEMOGLOBIN 15.4 g/dL (11.0-16.0); LYMPH # 1.6 K/uL (1.0-4.3); LYMPH % 25.1 % (20.0-40.0); MEAN CELL VOLUME 87.3 fL (81.0-99.0); MEAN CORPUSCULAR HEMOGLOBIN 29.8 pg (27.0-31.0); MEAN CORPUSCULAR HGB CONC 34.1 g/dL (33.0-37.0); MEAN PLATELET VOLUME 9.8 fL (7.2-11.7); MONO # 0.5 K/uL (0.0-0.8); MONO % 8.5 % (0.0-10.0); NEUT # 4.2 K/uL (1.8-7.0); NEUT % 65.7 % (50.0-75.0); NRBC % 0.1 % (0.0-2.0); RBC 5.18 Mil/uL (3.80-5.20); RED CELL DISTRIBUTION WIDTH 13.4 % (11.5-14.5); WHITE BLOOD COUNT 6.4 K/uL (4.8-10.8)
[2017-01-25 04:55] LABS: HCG,QUALITATIVE URINE NEGATIVE (NEGATIVE)
[2017-01-25] MEDS: POTASSIUM CHLORIDE IVPB ONE ×2 (05:00→06:38)
[2017-01-25 05:03] LABS: SQUAMOUS EPITHIAL 17 /hpf (0-5); URINE BILIRUBIN 1+ (NEGATIVE); URINE BLOOD 1+ (NEGATIVE); URINE CLARITY Hazy (Clear); URINE COLOR Amber (YELLOW); URINE GLUCOSE (UA) NORMAL (Normal); URINE LEUKOCYTE ESTERASE 1+ Leu/uL (Negative); URINE NITRATE NEGATIVE (NEGATIVE); URINE PROTEIN 2+ mg/dL (NEGATIVE)
[2017-01-25 05:06] LABS: ALBUMIN 4.4 g/dL (3.5-5.0)
[2017-01-25 05:09] LABS: ALB/GLOB RATIO 1.2 (1.0-2.1); ALT/SGPT 24 U/L (9-52); AST/SGOT 18 U/L (14-36); BLOOD UREA NITROGEN 8 mg/dL (7-17); GFR AFRICAN-AMERICAN > 60; GFR NON-AFRICAN AMERICAN > 60
[2017-01-25 05:10] LABS: CALCIUM 9.3 mg/dl (8.6-10.4); LIPASE 124 U/L (23-300)
[2017-01-25 06:23] VITALS: PULSE 56; RESP 16
[2017-01-25 07:22] VITALS: BP 117/59; TEMP 98
--- NOTE | 2017-01-25 19:34 | CARD ---
APPROVED REPORT EKG Measurement Heart [id number] <Conclusion> Sinus bradycardia Nonspecific T wave abnormality Abnormal ECG
== END 2017-01-25 07:23 | disposition home or self-care (01) ==
LOC: C.ER 03:57
DX: K29.70 Gastritis, unspecified, without bleeding (principal); R19.7 Diarrhea, unspecified; R11.10 Vomiting, unspecified; E87.6 Hypokalemia
CPT/HCPCS: 80053; 81001; 83690; 84703; 85025; 93005; 96365; 96375; 96376; 99285; J2405; J3480; J7040